=== PATIENT | female | born 1990 | race Caucasian/White ===

== ENCOUNTER → 2018-06-22 | Outpatient (CLI) | payer MEDICAID ==
--- NOTE | 2018-06-22 08:34 | US ---
EXAMINATION TYPE: US thyroid st tissue head/neck DATE OF EXAM: 06/22/2018 COMPARISON: NONE CLINICAL HISTORY: R59.9 elarged lymph nodes. Pt states palpable lump right lateral neck x 3-4 months GLAND SIZE: Right Lobe: 5.0 x 1.4 x 1.9 cm Overall Parenchyma: homogenous Left Lobe: 3.8 x 1.4 x 1.3 cm Overall Parenchyma: homogeneous Isthmus Thickness: 0.3 cm Bilateral neck scanned, within right lateral neck at pt's palpable there is a probable lymph node wit h AP measurement= 0.6 cm and with a length of 3.5 cm. Thyroid appears wnl bilaterally. IMPRESSION: Findings suggestive of a probable lymph node overlying the area of palpable reality as measured above . Short axis is only 6 mm.
== END | disposition home or self-care (01) ==
LOC: RADUSMAIN 07:44
PROVIDERS: ATTEND Family Medicine
DX: R59.9 Enlarged lymph nodes, unspecified (principal)
CPT/HCPCS: 76536

== ENCOUNTER 2018-12-26 21:07 | Emergency (ER) | payer MEDICAID ==
[2018-12-26 21:12] VITALS: BP 144/86; PULSE 84; RESP 18; TEMP 97.8
[2018-12-26 21:30] LABS: Appearance,Urine Cloudy (Clear); Bacteria,Urine Many /hpf; Bilirubin,Urine Negative (Negative); Blood,Urine Large (Negative); Color,Urine Yellow; Glucose,Urine (UA) Negative (Negative); Hyaline Casts,Urine 15 /lpf (0-2); Ketones,Urine Trace (Negative); Leukocyte Esterase,Urine Large (Negative); Mucus,Urine Many /hpf; Nitrite,Urine Negative (Negative); Protein,Urine 1+ (Negative); RBC,Urine >182 /hpf (0-5); Specific Gravity,Urine 1.032 (1.001-1.035); Squamous Epithelial Cell,Urine 9 /hpf (0-4)
== END 2018-12-26 21:25 ==
LOC: EC 21:07
DX: O99.89 Other specified diseases and conditions complicating pregnancy, childbirth and the puerperium (principal); R10.9 Unspecified abdominal pain; Z3A.24 24 weeks gestation of pregnancy
CPT/HCPCS: 81001; 99499

== ENCOUNTER 2018-12-26 21:30 | Outpatient (CLI) | payer MEDICAID ==
[2018-12-26 22:15] VITALS: BP 130/96; PULSE 60; RESP 16; TEMP 97.9
[2018-12-26 22:27] LABS: Uric Acid 4.1 mg/dL (3.7-7.4)
--- NOTE | 2019-01-02 07:43 | P.MSEPDOC ---
Presenting Problems - Arrival Data Date of Arrival on Unit: 12/26/18 Time of Arrival on Unit: 21:30 Mode of Transport: Ambulatory - Complaint OB-Reason for Admission/Chief Complaint: Other Medical History - Information : 1 Para: 0 Term: 0 : 0 Abortions: Spontaneous or Elective: 0 Number of Living Children: 0 - Gestational Age Gestational Age by AMBROCIO (wks/days): 24 Weeks and 3 Days Review of Systems - Review of Systems Constitutional: No problems Breast: No problems ENT: No problems Cardiovascular: No problems Respiratory: No problems Gastrointestinal: No problems Genitourinary: Dysuria, Urgency, Increased frequency Musculoskeletal: No problems Neurological: No problems Skin: No problems Vital Signs - Temperature Temperature: 97.9 F Temperature Source: Temporal Artery Scan - Pulse Right Brachial Pulse Rate: 60 Pulse Assessment Method: Automatic Cuff - Respirations Respiratory Rate: 16 Oxygen Delivery Method: Room Air O2 Sat by Pulse Oximetry: 100 - Blood Pressure Right Arm Blood Pressure: 130/96 Blood Pressure Mean: 107 Blood Pressure Source: Automatic Cuff Medical Screen Scoring (Pre) - Cervical Exam Dilation: Exam Deferred Effacement: Exam Deferred - Uterine Contractions Frequency: N/A Duration: N/A Intensity: N/A - Maternal Vital Signs Maternal Temperature: N/A Maternal Blood Pressure: Diastolic > 89 = 1 Signs of Preeclampsia: Nausea/Vomiting = 1 Maternal Respirations: N/A - Assessment - Baby A Heart Rate - NICHD Category: Category I (Normal) = 0 - Total Score - Baby A Total Score - Baby A: 2 - Level of Risk - Baby A Level of Risk - Baby A: Low (0-5) - Pain Assessment Pain Location and Character: Abdomen Pain Scale Used: Numeric (1 - 10) Pain Intensity: 4 Pain Management Goal: 0 Pain Description: *Acute, Aching Pain Radiation Location: no Pain Frequency: Constant Pain Duration: 2 Pain Duration Units: Hours Pain Behavior: Vocalization Physician Notification (Pre) - Physician Notified Physician Notified Date: 12/26/18 Physician Notified Time: 21:46 Medical Screen Scoring (Post) - Cervical Exam Dilation: Exam Deferred Effacement: Exam Deferred - Uterine Contractions Frequency: N/A Duration: N/A Intensity: N/A - Maternal Vital Signs Maternal Blood Pressure: Diastolic > 89 = 1 - Total Score Total Score - Baby A: 1 - Post Treatment Level of Risk Post Treatment Level of Risk - Baby A: Low (0-5) Physician Notification (Post) - Physician Notified Physician Notified Date: 12/26/18 Physician Notified Time: 22:34 Physician/Practitioner Notified:: Jose - Notification Comment Comment: 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 Disposition - Disposition OB Disposition: Discharge to home, Written follow up instructions reviewed Discharge Date: 12/26/18 Discharge Time: 22:38 I agree with the RN Medical Screening Exam: Yes Risk & Benefit of care provided described in d/c instruction: Yes Diagnosis: URINARY TRACT INFECTION, SITE NOT SPECIFIED
== END 2018-12-26 22:38 | disposition home or self-care (01) ==
LOC: FBPOP 21:30
PROVIDERS: ATTEND Obstetrics & Gynecology
DX: O99.89 Other specified diseases and conditions complicating pregnancy, childbirth and the puerperium (principal); N39.0 Urinary tract infection, site not specified; Z3A.24 24 weeks gestation of pregnancy
CPT/HCPCS: 84450; 84460; 84550; 87086; 99215

== ENCOUNTER → 2021-06-07 | Outpatient (CLI) | payer OTHER | LOC: EC 09:00 | PROVIDERS: ATTEND Emergency Medicine | DX: Z03.818 Encounter for observation for suspected exposure to other biological agents ruled out (principal) | CPT/HCPCS: 87635 ==